=== PATIENT | female | born 1950 | race Hispanic/Latino ===

== ENCOUNTER 2023-07-21 06:54 | Day surgery (SDC) | payer OTHER ==
[2023-07-15 16:25] LABS: Potassium 4.5 mEq/L (3.5-5.1)
--- NOTE | 2023-07-16 15:06 | EKG ---
Test Date: 2023-07-15 Test Time: 16:53:23 Loan Teller: FATEMEH MEASUREMENT RESULTS: Intervals: Rate: 65 OR: 186 QRSD: 84 QT: 410 QTc: 426 [place]: P: 23 OR: 186 QRS: -30 T: 42 INTERPRETIVE STATEMENTS: Normal sinus rhythm Left axis deviation Anterolateral infarct, age undetermined Abnormal ECG No previous ECG available for comparison Electronically Signed On 07-16-23 15:06:13 HATCH BOSS by Stefano Thayer
[2023-07-21] MEDS ORDERED: propofoL 200 MG/20 ML VIAL IV ONE (07:05)
[2023-07-21] MEDS ORDERED: LIDOCAINE 1% MPF 5 ML VIAL ONE (07:05)
[2023-07-21] MEDS ORDERED: SIMETHICONE 40 MG/ 0.6 ML ONE (07:06)
[2023-07-21] MEDS ORDERED: NA CHLORIDE 0.9% 1,000 ML ONE (07:13)
[2023-07-21] MEDS ORDERED: EPINEPHRINE 1 MG/ML VIAL ONE (07:23)
[2023-07-21 09:12] LABS: Absolute Lymphocytes (CBC) 1.8 K/uL (0.7-4.9); Lymphocytes % 32.2 % (15.3-44.8); MCV 86.9 fL (80-100); Platelets 236 thou/uL (152-406); RBC Red Blood Cell Count 4.14 M/uL (3.86-4.86)
[2023-07-21 10:18] LABS: Albumin 3.3 g/dL (3.4-5.0); Bilirubin Total 0.6 mg/dL (0.2-1.0); Protein, Total 6.8 g/dL (6.4-8.2)
--- NOTE | 2023-07-21 10:18 | RAD REPORT ---
EXAM DESCRIPTION: US - Abdomen Exam Complete - 07/21/2023 10:10 am CLINICAL HISTORY: Gallbladder pain COMPARISON: No comparisons FINDINGS: No aortic aneurysm. Hepatic steatosis. The portal vein is patent. The IVC at the level of the liver is unremarkable. No ascites. Cholecystectomy. The common bile duct measures 6 millimeters which is within normal limits given the patient's age and postcholecystectomy state. The pancreas was not well-visualized. The right kidney measures 9.5 cm normal echotexture. No hydronephrosis. No suspicious masses. Right r enal pelvis is dilated but no hydronephrosis. This could be secondary to an extrarenal pelvis and is of doubtful significance. The left kidney measures 7.6 cm with a normal echotexture. No hydronephrosis. Small hypoechoic lesion in the upper pole is likely a small complex cyst with thin septation. The spleen is unremarkable. IMPRESSION: Cholecystectomy. Common bile duct caliber within normal limits for patient's age. Hepatic steatosis.
[2023-07-21 10:30] LABS: Potassium 4.4 mEq/L (3.5-5.1)
[2023-07-21 10:43] VITALS: BP 179/81; TEMP 97; O2SAT 99
[2023-07-21 11:10] LABS: C-Reactive Protein 7.3 mg/L (<3.00)
== END 2023-07-21 10:05 | disposition home or self-care (01) ==
LOC: OR 06:54 → EDSEX 07:30 → OR 10:05
PROVIDERS: ATTEND Internal Medicine Gastroenterology
PROC: 0DB78ZX Excision of Stomach, Pylorus, Via Natural or Artificial Opening Endoscopic, Diagnostic (ICD-10-PCS; 2023-07-21)
PROC: 0DB68ZX Excision of Stomach, Via Natural or Artificial Opening Endoscopic, Diagnostic (ICD-10-PCS; principal; 2023-07-21 07:30)
DX: R10.13 Epigastric pain (principal); R11.0 Nausea; R14.0 Abdominal distension (gaseous); K29.50 Unspecified chronic gastritis without bleeding
CPT/HCPCS: 93005; 85025; 80048; 36415 ×2; 88312; 82947; 88305; 83690; 80053; 86140; 76700; 43239; J2704; J2001; J7030; J0171